=== PATIENT | female | born 1995 | race Hispanic/Latino ===

== ENCOUNTER 2016-10-07 16:44 | Emergency (ER) | payer SELFPAY ==
[2016-10-07 17:10] VITALS: BP 150/102
[2016-10-07] MEDS ORDERED: TYLENOL ONE (17:57)
[2016-10-07] MEDS ORDERED: TYLENOL PO ONE (18:08)
[2016-10-07 18:25] LABS: Basophils % (Auto) 0.3 % (0.0-1.8); Hematocrit 44.2 % (30.3-42.9); Hemoglobin 14.1 gm/dl (10.1-14.3); Mean Corpuscular HGB Conc 32 % (30-34); Mean Corpuscular Hemoglobin 26 pg (28-32); Mean Corpuscular Volume 82 fl (79-97); Platelet Count 263 K/mm3 (140-440); Red Cell Distribution Width 16.1 % (13.2-15.2); White Blood Count 12.1 K/mm3 (4.5-11.0)
[2016-10-07 18:42] LABS: Urine Drugs of Abuse Note Disclamer
[2016-10-07 18:47] LABS: Anion Gap 17 mmol/L; BUN/Creatinine Ratio 18.57; Blood Urea Nitrogen 13 mg/dL (7-17); Calcium 9.5 mg/dL (8.4-10.2); Carbon Dioxide 25 mmol/L (22-30); Chloride 99.3 mmol/L (98-107); Creatine Kinase 66 units/L (30-135); Glucose 88 mg/dL (65-100); Potassium 4.4 mmol/L (3.6-5.0); Sodium 137 mmol/L (137-145)
--- NOTE | 2016-10-07 18:59 | Emergency Department Report ---
Entered by RUBEN CURRIE, acting as scribe for LOLTIA WOODSON PA. Chief Complaint: Headache Stated Complaint: PASSED OUT/MIGRAINE/DIZZINESS Time Seen by Provider: 10/07/16 17:52 - HPI History of Present Illness: 21 y/o female with PMHx of headaches and heart murmur, presents c/o syncopal episode that occurred yesterday. The patient states that they fell and hit their head on the toilet, unknown downtime as the episode was unwitnessed. They state they have had syncopal episodes due to anxiety attacks previously. Associated symptoms of headache, nausea, vomiting this morning, and dizziness. Noted the patient was seen at [facility] last night, at which time they had labs, xrays, and EKG. However, they eloped from [facility] due to delay. They note they had an inhaler but it got run over recently. 01/11 severity. - ROS Review of Systems: NEURO: positive for syncopal episode, dizziness, and headache RESP: negative for SOB All other systems reviewed and negative - Exam Vital Signs: Vital Signs 10/07/16 17:04 Temperature 97.9 F Pulse Rate 94 H Respiratory 18 Rate Blood Pressure 150/102 O2 Sat by Pulse 100 Oximetry Physical Exam: Constitutional: Non toxic appearing, NAD. Cardiovascular: Normal rate and rhythm with normal S1/S2 sounds. Respiratory: No respiratory distress. Lung sounds clear to auscultation bilaterally. Abdomen: Abdomen is non-distended, soft with no tenderness to palpation in all quadrants. EYES: bilateral pupils are equal, reactive to light, and round. HEAD/FACE: normal except for ecchymosis to the right yarsani area, tender to palpation. MSE screening note: Focused history and physical exam performed. Due to findings the following was ordered: ED Medical Decision Making - Medical Decision Making Awake and alert x3. CT head and labs ordered. No acute distress, patient is stable. ED Disposition for MSE Condition: Stable This documentation as recorded by the scribe,RUBEN CURRIE,accurately reflects the service I personally performed and the decisions made by ,LOLITA WOODSON PA.
[2016-10-07 19:04] LABS: Creatine Kinase MB < 1.0 ng/mL (0.0-4.0)
[2016-10-07 19:14] LABS: Bilirubin,Urine NEG (Negative); Blood,Urine NEG (Negative); Ketones,Urine TR mg/dL (Negative); Leukocyte Esterase,Urine NEG (Negative); Mucus,Urine 3+ /HPF; Nitrite,Urine NEG (Negative)
--- NOTE | 2016-10-07 19:36 | Cat Scan Report ---
FINAL REPORT EXAM: CT HEAD/BRAIN WO CON HISTORY: Syncope TECHNIQUE: CT was performed from the foramen magnum through the vertex in the axial plane without the use of intravenous contrast. PRIORS: None. FINDINGS: The abad/white matter attenuation pattern is normal. There is no mass lesion or mass effect. There are no abnormal extra-axial fluid collections. There is no evidence of acute intracranial hemorrhage or infarct. The ventricles are of normal size and configuration. The skull and orbits are unremarkable. The visualized paranasal sinuses are clear. IMPRESSION: Normal CT of the head.
--- NOTE | 2016-10-13 00:36 | ED Elopement Review ---
ED Pt Elopement review - Results review Lab results: Laboratory Tests 10/07/16 10/07/16 10/07/16 18:09 18:09 18:09 WBC 12.1 H RBC 5.40 H Hgb 14.1 Hct 44.2 H MCV 82 MCH 26 L MCHC 32 RDW 16.1 H Plt Count 263 Lymph % (Auto) 20.5 Cooper % (Auto) 7.7 H Eos % (Auto) 1.0 Baso % (Auto) 0.3 Lymph # 2.5 Cooper # 0.9 H Eos # 0.1 Baso # 0.0 Seg Neutrophils % 70.5 H Seg Neutrophils # 8.5 H D-Dimer < 135.0 Sodium 137 Potassium 4.4 Chloride 99.3 Carbon Dioxide 25 Anion Gap 17 BUN 13 Creatinine 0.7 Estimated GFR > 60 BUN/Creatinine Ratio 18.57 Glucose 88 Calcium 9.5 Magnesium Lactate Dehydrogenase Total Creatine Kinase 66 CK-MB (CK-2) < 1.0 CK-MB (CK-2) Rel Index 1.5 Troponin T HCG, Qual Urine Color Urine Turbidity Urine pH Ur Specific Sundown Urine Protein Urine Glucose (UA) Urine Ketones Urine Blood Urine Nitrite Urine Bilirubin Urine Urobilinogen Ur Leukocyte Esterase Urine WBC (Auto) Urine RBC (Auto) U Epithel Cells (Auto) Calcium Oxalate Crystal Urine Mucus Urine Opiates Screen Urine Methadone Screen Ur Barbiturates Screen Ur Phencyclidine Scrn Ur Amphetamines Screen U Benzodiazepines Scrn Urine Cocaine Screen U Marijuana (THC) Screen Drugs of Abuse Note 10/07/16 10/07/16 10/07/16 18:09 18:09 18:09 WBC RBC Hgb Hct MCV MCH MCHC RDW Plt Count Lymph % (Auto) Cooper % (Auto) Eos % (Auto) Baso % (Auto) Lymph # Cooper # Eos # Baso # Seg Neutrophils % Seg Neutrophils # D-Dimer Sodium Potassium Chloride Carbon Dioxide Anion Gap BUN Creatinine Estimated GFR BUN/Creatinine Ratio Glucose Calcium Magnesium 2.10 Lactate Dehydrogenase 197 H Total Creatine Kinase CK-MB (CK-2) CK-MB (CK-2) Rel Index Troponin T < 0.010 HCG, Qual Negative Urine Color Urine Turbidity Urine pH Ur Specific Sundown Urine Protein Urine Glucose (UA) Urine Ketones Urine Blood Urine Nitrite Urine Bilirubin Urine Urobilinogen Ur Leukocyte Esterase Urine WBC (Auto) Urine RBC (Auto) U Epithel Cells (Auto) Calcium Oxalate Crystal Urine Mucus Urine Opiates Screen Urine Methadone Screen Ur Barbiturates Screen Ur Phencyclidine Scrn Ur Amphetamines Screen U Benzodiazepines Scrn Urine Cocaine Screen U Marijuana (THC) Screen Drugs of Abuse Note 10/07/16 10/07/16 18:33 18:33 WBC RBC Hgb Hct MCV MCH MCHC RDW Plt Count Lymph % (Auto) Cooper % (Auto) Eos % (Auto) Baso % (Auto) Lymph # Cooper # Eos # Baso # Seg Neutrophils % Seg Neutrophils # D-Dimer Sodium Potassium Chloride Carbon Dioxide Anion Gap BUN Creatinine Estimated GFR BUN/Creatinine Ratio Glucose Calcium Magnesium Lactate Dehydrogenase Total Creatine Kinase CK-MB (CK-2) CK-MB (CK-2) Rel Index Troponin T HCG, Qual Urine Color Adela Urine Turbidity Clear Urine pH 6.0 Ur Specific Sundown 1.027 Urine Protein 30 mg/dl Urine Glucose (UA) Neg Urine Ketones Tr Urine Blood Neg Urine Nitrite Neg Urine Bilirubin Neg Urine Urobilinogen 2.0 Ur Leukocyte Esterase Neg Urine WBC (Auto) 2.0 Urine RBC (Auto) 9.0 U Epithel Cells (Auto) 8.0 Calcium Oxalate Crystal Few Urine Mucus 3+ Urine Opiates Screen Presumptive negative Urine Methadone Screen Presumptive negative Ur Barbiturates Screen Presumptive negative Ur Phencyclidine Scrn Presumptive negative Ur Amphetamines Screen Presumptive negative U Benzodiazepines Scrn Presumptive negative Urine Cocaine Screen Presumptive negative U Marijuana (THC) Screen Presumptive positive Drugs of Abuse Note Disclamer - Call Back decision Pt Call Back Decision: Pt to F/U with PMD
== END 2016-10-07 22:58 | disposition left against medical advice (07) ==
LOC: ED 16:44
DX: R42 Dizziness and giddiness (principal); G43.909 Migraine, unspecified, not intractable, without status migrainosus; Z53.21 Procedure and treatment not carried out due to patient leaving prior to being seen by health care provider
CPT/HCPCS: 36415; 70450; 80048; 80307; 81001; 82550; 82553; 83615; 83735; 84484; 84703; 85025; 85379